=== PATIENT | female | born 2000 | race African-American/Black ===

== ENCOUNTER 2023-02-24 14:49 | Emergency (ER) | payer OTHER, MEDICAID, SELFPAY ==
[2023-02-24 15:14] VITALS: BP 137/70; PULSE 86; RESP 16; TEMP 36.3; O2SAT 97; BMI 32.3
[2023-02-24 16:55] LABS: Bacteria Urine Many (>30); Culture Indicated Urine Specimen Cultured; RBC Urine 0-1/HPF (0-5/HPF); Squamous Epithelial Cell Urine 0-1 /HPF (0-5/HPF); WBC Urine 0-1/HPF (0-5/HPF)
[2023-02-24 17:02] VITALS: BP 112/54; PULSE 107; RESP 18; TEMP 36.6; O2SAT 98
[2023-02-24 17:16] LABS: Add Manual Diff / Slide Review NO; Basophils Absolute Auto 100 /uL (0-100); Basophils Percent Auto 0.5 % (0-2); Eosinophils Absolute Auto 200 /uL (0-450); Eosinophils Percent Auto 1.4 % (2-4); Lymphocytes Absolute Auto 1200 /uL (1100-4500); Mean Corpuscular HGB Conc 33.2 % (30-36); Mean Corpuscular Hemoglobin 27.2 PG (26-34); Mean Corpuscular Volume 81.9 fL (80-100); Monocytes Absolute Auto 900 /uL (0-900); Monocytes Percent Auto 7.3 % (3-14); Neutrophils Absolute Auto 10100 /uL (1500-7000); Neutrophils Percent Auto 80.8 % (50-75); Platelet Count 225 X10^3/uL (150-400); Red Blood Cell Count 3.66 X10^6/uL (4.0-5.2); Red Cell Distribution Width 15.1 % (11.6-14.8); White Blood Cell Count 12.5 X10^3/uL (4.5-11.0)
[2023-02-24 17:34] LABS: COVID19 -Nasal RAPID Negative (Negative)
--- NOTE | 2023-02-24 17:57 | DI.US.S_ITS ---
PROCEDURE: US ABDOMEN LIMITED INDICATIONS: LEFT UPPER QUADRANT PAIN TECHNIQUE: Real-time scanning was performed of the abdominal and retroperitoneal organs, with image documentation. COMPARISON: None. FINDINGS: Left kidney: Normal size and echogenicity. No hydronephrosis. Spleen: Spleen is normal in size and homogeneous in echotexture. IMPRESSION: No left upper quadrant pathology. Dictated by: Ej Bedolla M.D. on 02/24/2023 at 19:13 Approved by: Ej Bedolla M.D. on 02/24/2023 at 19:14
--- NOTE | 2023-02-24 17:57 | DI.US.S_ITS ---
PROCEDURE: US OB LIMITED INDICATIONS: LEFT UPPER QUADRANT PAIN OUTSIDE/PRIOR DATING DATA: Last menstrual period (LMP): Unknown. LMP-based estimated date of delivery (ALO): Not applicable. First dating scan (date and location): Not available. Estimated date of delivery (ALO) from first dating scan: 05/11/2023. TECHNIQUE: Real-time scanning was performed of the fetus, with image documentation. Endovaginal scanning: Not performed COMPARISON: None. FINDINGS: A single living intrauterine gestation is present. Presentation: Vertex. Placenta: Placental position is anterior, without previa. Amniotic fluid index: 11.1 cm, normal range is 5-24 cm. Single deepest vertical pocket is 3.8 cm. heart rate: 150 beats per minute. Maternal cervical canal: 3.4 cm long. Normal lower limit is 2.5 cm. IMPRESSION: Single living intrauterine at 29 weeks 2 days, ALO of 05/10/2023. MATEO within normal limits. Anterior placenta, without previa. Dictated by: Ej Bedolla M.D. on 02/24/2023 at 19:06 Approved by: Ej Bedolla M.D. on 02/24/2023 at 19:08
[2023-02-24 18:11] LABS: Alanine Aminotransferase 20 IU/L (<35); Albumin 3.4 g/dL (3.5-5.0); Albumin Globulin Ratio 1.1 (1.0-2.8); Alkaline Phosphatase 87 U/L (38-126); Aspartate Aminotransferase 21 IU/L (14-36); BUN Creatinine Ratio 8.6 (6-22); Bilirubin Total 0.5 mg/dL (0.2-1.3); Blood Urea Nitrogen 5 mg/dL (7-17); Calcium 8.7 mg/dL (8.4-10.2); Carbon Dioxide 26 mmol/L (22-32); Chloride 102 mmol/L (98-107); Estimated Glomerular Filt Rate > 60 mL/min (>60); Globulin 3.2 g/dL (1.7-4.1); Glucose 81 mg/dL (70-100); HEMOLYSIS < 15 (0-50); Potassium 3.5 mmol/L (3.4-5.1); Sodium 132 mmol/L (137-145); Total Protein 6.6 g/dL (6.3-8.2)
[2023-02-24 18:21] VITALS: BP 119/67; PULSE 80; RESP 18; O2SAT 97
--- NOTE | 2023-02-24 18:40 | ED_ITS ---
HPI - Abdominal Pain <Rin Barrios PA-C - Last Filed: 02/25/23 13:45> General Chief Complaint: Abdominal Pain Stated Complaint: ABD Pain, dizzy, lightheaded Time Seen by Provider: 02/24/23 16:58 Source: patient Mode of arrival: Ambulatory History of Present Illness HPI narrative: Patient is a 22-year-old who receives her obstetric care from the residency Clinic at [facility] who presents with persistent lightheadedness, headache, sometimes seeing spots for several weeks and left lower rib/left upper quadrant pain x4 months. She reports having good care including a normal anatomy ultrasound. Her clinic told her that she was anemic and she is taking iron daily. She attempted to contact them with these concerns but did not hear back. She is been drinking lots of water but continues to feel lightheaded and has a headache. The left upper quadrant/rib pain has been present for 4 months but seems to be worsening. She does not think it is related to her groin baby. She denies nausea, vomiting, fever or chills, diarrhea or constipation. She denies urinary symptoms. She denies vaginal bleeding, discharge, leaking. She feels the baby moving frequently and has no contractions. She endorses fatigue. She denies signs or symptoms of depression or anxiety, often has plans for the day but feels as if she is not physically able to complete those plans due to her fatigue and she just wants to sleep all day. Related Data Previous Rx's Medication Instructions Recorded cephalexin 500 mg capsule 500 mg PO QID #20 caps 02/24/23 Allergies Allergy/AdvReac Type Severity Reaction Status Date / Time avocado Allergy Verified 02/24/23 15:23 banana Allergy Verified 02/24/23 15:23 orange Allergy Verified 02/24/23 15:23 shellfish derived Allergy Verified 02/24/23 15:23 watermelon Allergy Verified 02/24/23 15:23 Review of Systems <Rin Barrios PA-C - Last Filed: 02/25/23 13:45> Review of Systems ROS Unobtainable: All systems reviewed & are unremarkable except as noted in HPI and below Patient History <Rin Barrios PA-C - Last Filed: 02/25/23 13:45> Social History Smoking Status: Never smoker Smoking Status: Never smoker Substance Use Type: does not use Exam <Rin Barrios PA-C - Last Filed: 02/25/23 13:45> Narrative Exam Narrative: GENERAL: 22 year old patient appears stated age. Well-developed patient, in no distress. NEURO: AOx3. HEAD: Atraumatic. Normocephalic. EYES: Pupils equal round and reactive. Extraocular motions intact. No scleral icterus. No injection or drainage. ENT: Nose without bleeding or purulent drainage.Airway patent. NECK: Trachea midline. Non tender CARDIOVASCULAR: Regular rate and rhythm without murmurs, gallops, or rubs. RESPIRATORY: Clear to auscultation. Breath sounds equal bilaterally. No wheezes, rales, or rhonchi. GASTROINTESTINAL: Gravid abdomen, soft and nontender. Unable to reproduce her left upper quadrant pain with palpation of the left upper quadrant or the left lower ribs. No CVA tenderness. EXTREMITIES: No edema or joint tenderness. SKIN: No rash or erythema of visible areas Initial Vital Signs Initial Vital Signs: Vital Signs Temperature 97.4 F L 02/24/23 15:14 Pulse Rate 86 02/24/23 15:14 Respiratory Rate 16 02/24/23 15:14 Blood Pressure 137/70 02/24/23 15:14 Pulse Oximetry 97 02/24/23 15:14 Oxygen Delivery Method Room Air 02/24/23 15:14 <Yanci Ya DO - Last Filed: 02/26/23 07:34> Initial Vital Signs Initial Vital Signs: Vital Signs Temperature 97.4 F L 02/24/23 15:14 Pulse Rate 86 02/24/23 15:14 Respiratory Rate 16 02/24/23 15:14 Blood Pressure 137/70 02/24/23 15:14 Pulse Oximetry 97 02/24/23 15:14 Oxygen Delivery Method Room Air 02/24/23 15:14 Course <Rin Barrios PA-C - Last Filed: 02/25/23 13:45> Orders Ordered: ED Orders 02/24/23 15:46 Urine Culture Stat Urine Microscopic Stat 02/24/23 17:00 COVID19 -Nasal RAPID Stat 02/24/23 17:08 CBC Auto Diff [Complete Blood Count AUTO DIFF] Stat 02/24/23 17:15 CMP [Comprehensive Metabolic Panel] Stat 02/24/23 17:57 US OB limited Stat US abdomen limited Stat Vital Signs Vital signs: Vital Signs - 8 hr 02/24/23 15:14 02/24/23 17:02 02/24/23 18:21 Temperature 97.4 F L 97.8 F Pulse Rate 86 107 H 80 Respiratory Rate 16 18 18 Blood Pressure 137/70 112/54 L 119/67 Pulse Oximetry 97 98 97 Oxygen Delivery Method Room Air Room Air Room Air <Yanci Ya DO - Last Filed: 02/26/23 07:34> Orders Ordered: ED Orders 02/24/23 15:46 Urine Culture Stat Urine Microscopic Stat 02/24/23 17:00 COVID19 -Nasal RAPID Stat 02/24/23 17:08 CBC Auto Diff [Complete Blood Count AUTO DIFF] Stat 02/24/23 17:15 CMP [Comprehensive Metabolic Panel] Stat 02/24/23 17:57 US OB limited Stat US abdomen limited Stat Vital Signs Vital signs: Vital Signs - 8 hr 02/24/23 15:14 02/24/23 17:02 02/24/23 18:21 Temperature 97.4 F L 97.8 F Pulse Rate 86 107 H 80 Respiratory Rate 16 18 18 Blood Pressure 137/70 112/54 L 119/67 Pulse Oximetry 97 98 97 Oxygen Delivery Method Room Air Room Air Room Air MDM - Abdominal Pain <Rin Barrios PA-C - Last Filed: 02/25/23 13:45> Lab Data 02/24/23 17:08 02/24/23 17:15 Labs: Lab Results 02/24/23 02/24/23 02/24/23 Range/Units 15:46 17:00 17:08 WBC 12.5 H (4.5-11.0) X10^3/uL RBC 3.66 L (4.0-5.2) X10^6/uL Hgb 10.0 L (12.0-16.0) g/dL Hct 30.0 L (36-46) % MCV 81.9 (80-100) fL MCH 27.2 (26-34) PG MCHC 33.2 (30-36) % RDW 15.1 H (11.6-14.8) % Plt Count 225 (150-400) X10^3/uL Neut % (Auto) 80.8 H (50-75) % Lymph % (Auto) 10.0 L (25-40) % [place] % (Auto) 7.3 (3-14) % Eos % (Auto) 1.4 L (2-4) % Baso % (Auto) 0.5 (0-2) % Neut # (Auto) 17848 H (0410-9043) /uL Lymph # (Auto) 1200 (3818-6492) /uL [place] # (Auto) 900 (0-900) /uL Eos # (Auto) 200 (0-450) /uL Baso # (Auto) 100 (0-100) /uL Sodium (137-145) mmol/L Potassium (3.4-5.1) mmol/L Chloride (98-107) mmol/L Carbon Dioxide (22-32) mmol/L BUN (7-17) mg/dL Creatinine (0.52-1.04) mg/dL Estimated GFR (>60) mL/min BUN/Creatinine Ratio (6-22) Glucose (70-100) mg/dL Calcium (8.4-10.2) mg/dL Total Bilirubin (0.2-1.3) mg/dL AST (14-36) IU/L ALT (<35) IU/L Alkaline Phosphatase (38-126) U/L Total Protein (6.3-8.2) g/dL Albumin (3.5-5.0) g/dL Globulin (1.7-4.1) g/dL Albumin/Globulin Ratio (1.0-2.8) Urine RBC 0-1/hpf (0-5/HPF) Urine WBC 0-1/hpf (0-5/HPF) Ur Squamous Epith Cells 0-1 /hpf (0-5/HPF) Urine Bacteria Many (>30) H (None) Ur Culture Indicated? Specimen cultured SARS-CoV-2 (PCR) Negative (Negative) 02/24/23 Range/Units 17:15 WBC (4.5-11.0) X10^3/uL RBC (4.0-5.2) X10^6/uL Hgb (12.0-16.0) g/dL Hct (36-46) % MCV (80-100) fL MCH (26-34) PG MCHC (30-36) % RDW (11.6-14.8) % Plt Count (150-400) X10^3/uL Neut % (Auto) (50-75) % Lymph % (Auto) (25-40) % [place] % (Auto) (3-14) % Eos % (Auto) (2-4) % Baso % (Auto) (0-2) % Neut # (Auto) (4724-3236) /uL Lymph # (Auto) (7680-9654) /uL [place] # (Auto) (0-900) /uL Eos # (Auto) (0-450) /uL Baso # (Auto) (0-100) /uL Sodium 132 L (137-145) mmol/L Potassium 3.5 (3.4-5.1) mmol/L Chloride 102 (98-107) mmol/L Carbon Dioxide 26 (22-32) mmol/L BUN 5 L (7-17) mg/dL Creatinine 0.58 (0.52-1.04) mg/dL Estimated GFR > 60 (>60) mL/min BUN/Creatinine Ratio 8.6 (6-22) Glucose 81 (70-100) mg/dL Calcium 8.7 (8.4-10.2) mg/dL Total Bilirubin 0.5 (0.2-1.3) mg/dL AST 21 (14-36) IU/L ALT 20 (<35) IU/L Alkaline Phosphatase 87 (38-126) U/L Total Protein 6.6 (6.3-8.2) g/dL Albumin 3.4 L (3.5-5.0) g/dL Globulin 3.2 (1.7-4.1) g/dL Albumin/Globulin Ratio 1.1 (1.0-2.8) Urine RBC (0-5/HPF) Urine WBC (0-5/HPF) Ur Squamous Epith Cells (0-5/HPF) Urine Bacteria (None) Ur Culture Indicated? SARS-CoV-2 (PCR) (Negative) Point of care testing: Point of Care Testing Test Results Positive Urine Dip Bedside Urine Glucose Negative Bedside Urine Bilirubin - Negative Bedside Urine Ketone - Negative Urine Specific [place] 1.025 Bedside Urine Occult Blood +/- Bedside Urine pH 6.0 Bedside Urine Protein +/- 15 Bedside Urine Urobilinogen - Negative Bedside Urine Nitrite + Positive Bedside Urine Leukocytes +/- 15 Esterase Imaging Data US - abdomen: Radiologist's Impression: PROCEDURE: US OB LIMITED INDICATIONS: LEFT UPPER QUADRANT PAIN OUTSIDE/PRIOR DATING DATA: Last menstrual period (LMP): Unknown. LMP-based estimated date of delivery (ALO): Not applicable. First dating scan (date and location): Not available. Estimated date of delivery (ALO) from first dating scan: 05/11/2023. TECHNIQUE: Real-time scanning was performed of the fetus, with image documentation. Endovaginal scanning: Not performed COMPARISON: None. FINDINGS: A single living intrauterine gestation is present. Presentation: Vertex. Placenta: Placental position is anterior, without previa. Amniotic fluid index: 11.1 cm, normal range is 5-24 cm. Single deepest vertical pocket is 3.8 cm. heart rate: 150 beats per minute. Maternal cervical canal: 3.4 cm long. Normal lower limit is 2.5 cm. IMPRESSION: Single living intrauterine at 29 weeks 2 days, ALO of 05/10/2023. MATEO within normal limits. Anterior placenta, without previa. Dictated by: Ej Bedolla M.D. on 02/24/2023 at 19:06 Approved by: Ej Bedolla M.D. on 02/24/2023 at 19:08 PROCEDURE: US ABDOMEN LIMITED INDICATIONS: LEFT UPPER QUADRANT PAIN TECHNIQUE: Real-time scanning was performed of the abdominal and retroperitoneal organs, with image documentation. COMPARISON: None. FINDINGS: Left kidney: Normal size and echogenicity. No hydronephrosis. Spleen: Spleen is normal in size and homogeneous in echotexture. IMPRESSION: No left upper quadrant pathology. Dictated by: Ej Bedolla M.D. on 02/24/2023 at 19:13 Approved by: Ej Bedolla M.D. on 02/24/2023 at 19:14 MDM Narrative Medical decision making narrative: Multiple etiologies for patient's symptoms considered including, but not limited to: Infection, dehydration, anemia, HELLP syndrome, pre-eclampsia. Patient's labs show a mild leukocytosis, anemia with hemoglobin 10, hematocrit 30, sodium 132 with a normal potassium, normal renal function, normal liver function tests. Urine with many bacteria, consistent asymptomatic cystitis of . Blood pressure in normal range and platelets normal, making HELLP or pre- eclampsia unlikely. Abdominal ultrasound without acute findings, fetus with good heart rate, activity, fluid. It is possible that patient's urinary tract infection is contributing to her feeling of lightheadedness. She is well hydrated. I will prescribe 5 days of cephalexin for cystitis. I advised her to continue taking her iron supplement as ordered and to follow up with her primary OB provider for reassessment. Continue staying well hydrated, although her labs show a slight hyponatremia today-she should take in 3-4 L of water daily. Patient's symptoms improved over duration of stay with above-stated therapies. Findings and discharge diagnosis discussed with patient/family followed by verbalization of understanding Return precautions discussed with patient/family whom verbalize understanding of diagnosis and plan <Yanci Ya, - Last Filed: 02/26/23 07:34> Lab Data Labs: Lab Results 02/24/23 02/24/23 02/24/23 Range/Units 15:46 17:00 17:08 WBC 12.5 H (4.5-11.0) X10^3/uL RBC 3.66 L (4.0-5.2) X10^6/uL Hgb 10.0 L (12.0-16.0) g/dL Hct 30.0 L (36-46) % MCV 81.9 (80-100) fL MCH 27.2 (26-34) PG MCHC 33.2 (30-36) % RDW 15.1 H (11.6-14.8) % Plt Count 225 (150-400) X10^3/uL Neut % (Auto) 80.8 H (50-75) % Lymph % (Auto) 10.0 L (25-40) % [place] % (Auto) 7.3 (3-14) % Eos % (Auto) 1.4 L (2-4) % Baso % (Auto) 0.5 (0-2) % Neut # (Auto) 53228 H (0444-1353) /uL Lymph # (Auto) 1200 (9059-3073) /uL [place] # (Auto) 900 (0-900) /uL Eos # (Auto) 200 (0-450) /uL Baso # (Auto) 100 (0-100) /uL Sodium (137-145) mmol/L Potassium (3.4-5.1) mmol/L Chloride (98-107) mmol/L Carbon Dioxide (22-32) mmol/L BUN (7-17) mg/dL Creatinine (0.52-1.04) mg/dL Estimated GFR (>60) mL/min BUN/Creatinine Ratio (6-22) Glucose (70-100) mg/dL Calcium (8.4-10.2) mg/dL Total Bilirubin (0.2-1.3) mg/dL AST (14-36) IU/L ALT (<35) IU/L Alkaline Phosphatase (38-126) U/L Total Protein (6.3-8.2) g/dL Albumin (3.5-5.0) g/dL Globulin (1.7-4.1) g/dL Albumin/Globulin Ratio (1.0-2.8) Urine RBC 0-1/hpf (0-5/HPF) Urine WBC 0-1/hpf (0-5/HPF) Ur Squamous Epith Cells 0-1 /hpf (0-5/HPF) Urine Bacteria Many (>30) H (None) Ur Culture Indicated? Specimen cultured SARS-CoV-2 (PCR) Negative (Negative) 02/24/23 Range/Units 17:15 WBC (4.5-11.0) X10^3/uL RBC (4.0-5.2) X10^6/uL Hgb (12.0-16.0) g/dL Hct (36-46) % MCV (80-100) fL MCH (26-34) PG MCHC (30-36) % RDW (11.6-14.8) % Plt Count (150-400) X10^3/uL Neut % (Auto) (50-75) % Lymph % (Auto) (25-40) % [place] % (Auto) (3-14) % Eos % (Auto) (2-4) % Baso % (Auto) (0-2) % Neut # (Auto) (2979-2387) /uL Lymph # (Auto) (9540-8408) /uL [place] # (Auto) (0-900) /uL Eos # (Auto) (0-450) /uL Baso # (Auto) (0-100) /uL Sodium 132 L (137-145) mmol/L Potassium 3.5 (3.4-5.1) mmol/L Chloride 102 (98-107) mmol/L Carbon Dioxide 26 (22-32) mmol/L BUN 5 L (7-17) mg/dL Creatinine 0.58 (0.52-1.04) mg/dL Estimated GFR > 60 (>60) mL/min BUN/Creatinine Ratio 8.6 (6-22) Glucose 81 (70-100) mg/dL Calcium 8.7 (8.4-10.2) mg/dL Total Bilirubin 0.5 (0.2-1.3) mg/dL AST 21 (14-36) IU/L ALT 20 (<35) IU/L Alkaline Phosphatase 87 (38-126) U/L Total Protein 6.6 (6.3-8.2) g/dL Albumin 3.4 L (3.5-5.0) g/dL Globulin 3.2 (1.7-4.1) g/dL Albumin/Globulin Ratio 1.1 (1.0-2.8) Urine RBC (0-5/HPF) Urine WBC (0-5/HPF) Ur Squamous Epith Cells (0-5/HPF) Urine Bacteria (None) Ur Culture Indicated? SARS-CoV-2 (PCR) (Negative) Point of care testing: Point of Care Testing Test Results Positive Urine Dip Bedside Urine Glucose Negative Bedside Urine Bilirubin - Negative Bedside Urine Ketone - Negative Urine Specific [place] 1.025 Bedside Urine Occult Blood +/- Bedside Urine pH 6.0 Bedside Urine Protein +/- 15 Bedside Urine Urobilinogen - Negative Bedside Urine Nitrite + Positive Bedside Urine Leukocytes +/- 15 Esterase Discharge Plan Departure Patient Disposition: Home Clinical Impression: Asymptomatic bacteriuria during , Left upper quadrant abdominal pain Instructions: Acute Cystitis Activity Restrictions/Additional Instructions: *You have been diagnosed with urinary tract infection. I have sent a prescription for antibiotics to the [facility]'s in [place]. Please take all these antibiotics even though you are having no symptoms. Please call your OB office and ask for follow up appointment, sometimes it helps to say that you were seen in the emergency room and told to follow up. Continue taking your iron supplement *What to do: *Please continue to take your regular medications as directed. [x] New medication prescriptions sent to your pharmacy: [ ] [ ] New medication written as a paper prescription [ ] No new medications given *Please follow up with your primary care provider in 2-3 days, call for an appointment. Let them know you were seen in the Emergency Department and that we ask that you be seen in follow up. We will electronically transmit a record of today's note if your PCP is in our system *If you do not have a primary care provider please contact the [facility] Resource line at [phone]. They will ask some questions about your medical history and help get you set up with a doctor in the community. *Return to Emergency Department if you should have any new, worsening or concerning symptoms, such as [fever greater than 101 F, shaking chills, worsening pain, persistent vomiting or other concerning symptoms]. Prescriptions: New cephalexin 500 mg capsule 500 mg PO QID Qty: 20 0RF Referrals: Miscellaneous,Doctor, [Primary Care Provider] - Stand Alone Forms: Patient Portal/API ED Sign-out <Yanci Ya DO - Last Filed: 02/26/23 07:34> Cosign ED Attending Bethature Attestation: I was immediately available in the department for consultation.
== END 2023-02-24 19:48 | disposition home or self-care (01) ==
PROVIDERS: Emergency Medicine; Emergency Provider Physician Assistant
DX: O23.43 Unspecified infection of urinary tract in pregnancy, third trimester (principal); O26.893 Other specified pregnancy related conditions, third trimester; R10.12 Left upper quadrant pain; Z3A.29 29 weeks gestation of pregnancy; Z11.52 Encounter for screening for COVID-19
CPT/HCPCS: 36415; 76705; 76815; 80053; 81003; 81015; 81025; 85025; 87086; 87635; 99283; C9803